=== PATIENT | male | born 1980 | race Caucasian/White ===

== ENCOUNTER 2020-03-17 13:30 | Emergency (ER) | payer OTHER, SELFPAY ==
--- NOTE | 2020-03-17 13:32 | ED.GENADULT ---
HPI - General Adult General Chief complaint: Urogenital-Male Stated complaint: std test Time Seen by Provider: 03/17/20 13:32 Source: patient Mode of arrival: ambulatory Limitations: no limitations History of Present Illness HPI narrative: 39-year-old male patient presents to the [facility] with concerns about STD exposure. Patient states that his girlfriend went for her yearly checkup and came back positive for chlamydia. Patient's states that he was with her about a week ago was the last time he was exposed. Denies any symptoms. Denies any penile discharge, pain with urination, abdominal pain, and fevers body aches or chills. Patient states he just wanted to get checked out for precautionary measures. Related Data Allergies Allergy/AdvReac Type Severity Reaction Status Date / Time No Known Allergies Allergy Verified 03/17/20 13:34 Review of Systems Review of Systems: Narrative: CONSTITUTIONAL: Denies fever, chills, or sweats. EYES: Denies visual changes, redness, or discharge. ENT: Denies rhinorrhea, congestion, sore throat, or otalgia. CARDIOVASCULAR: Denies chest pain, palpitations, or edema. RESPIRATORY: Denies cough or dyspnea. GASTROINTESTINAL: Denies abdominal pain, nausea, vomiting, or diarrhea. GENITOURINARY: Denies dysuria or hematuria. Positive exposure to STD SKIN: Denies rash or itching. MUSCULOSKELETAL: Denies back pain, joint pain, or myalgia. NEUROLOGIC: Denies headache, numbness, or weakness. PSYCHIATRIC: Denies anxiety or depression. PMFSH Comments At the time of my signature I agree with nursing past medical history, surgical, social, and family history. There is no relevant family history pertinent to the presenting complaint. Exam Narrative: Exam Narrative: GENERAL: Well-appearing, well-nourished, and in no acute distress. HEAD: Normocephalic, atraumatic. EYES: PERRLA and EOMI. ENT: Nares clear, no rhinorrhea or epistaxis. Mucous membranes moist. NECK: Supple. No lymphadenopathy CHEST: Clear to auscultation. No respiratory distress. HEART: Regular rate and rhythm. No murmur heard. Normal peripheral pulses. ABDOMEN: Soft, nontender, nondistended, normal active bowel sounds. No CVA tenderness on percussion : Deferred EXTREMITIES: Normal range of motion. No edema. SKIN: Warm, dry, no rash. NEURO: No focal deficits. Alert and oriented x3. Course Vital Signs Vital signs: Vital signs reviewed. Medical Decision Making Differential Diagnosis Differential Diagnosis: Differential diagnosis: Gonorrhea, chlamydia, Trichomonas, bacterial vaginosis, herpes, HIV, yeast infection, urinary tract infection. Discussed with patient that since we are to go ahead and test him today for gonorrhea, chlamydia and trichomonas we will go ahead and treat him for this as well. Discussed with him that he will get a shot, some oral medications in the clinic today as well as be sent home with a prescription of 4 pills that I will him to take when he has at home. Discussed with patient that we will call him if he has positive however if he wants to know his results and he has not received a phone call he is free to call us in the next 2 to 3 days. Patient verbalized understanding denies any other questions or concerns at this time. Critical Care Time Critical Care Time Critical Care Time: No Discharge Plan Discharge Clinical Impression: Concern about sexually transmitted disease in male without diagnosis Patient Disposition: Home, Self-Care Condition: Stable Instructions: Antibiotic Form, Sexually Transmitted Diseases (ED), Safe Sex Practices (ED) Additional Instructions: Please do not engage in sexual activity for at least 7 days after being treated for STDs Take prescribed medication as directed. Contact your health care provider or report to the emergency department if: You have genital swelling or pain, or unusual bleeding. You have joint pain, rash, swollen lymph nodes or night sweats. You are severe
[2020-03-17 13:35] VITALS: BP 156/100; PULSE 78; RESP 18; TEMP 37.2; O2SAT 100
[2020-03-17] MEDS: cefTRIAXone 250 MG VIAL IM (13:57)
[2020-03-17] MEDS: AZITHROMYCIN 250 MG TABLET 1000 MG PO (13:57)
[2020-03-17] MEDS: LIDOCAINE HCL 1% LOCAL INJ 20 ML VIAL IM (13:57)
== END 2020-03-17 14:15 | disposition home or self-care (01) ==
PROVIDERS: Emergency Provider Nurse Practitioner Family
DX: Z20.2 Contact with and (suspected) exposure to infections with a predominantly sexual mode of transmission (principal)
CPT/HCPCS: 87491; 87591; 87661; 96372; 99213; A9270; G0463; J0696